=== PATIENT | male | born 1940 | race Caucasian/White ===

== ENCOUNTER → 2017-02-25 | Outpatient (CLI) | payer OTHER ==
[~2017-02-25] MED LIST: AMARYL2 MG PO; AMBIEN 10 MG TA10 MG PO; ANTIVERT25 MG PO; ASPIRIN EC81 M1 PO; CELEBREX 200 M200 MG PO; CLONAZEPAM0.25 MG PO; CYMBALTA60 MG PO; DILAUDID2 M1 PO; ETODOLAC 400 M400 MG PO; FLOMAX PO; GLUCOPHAGE500 MG PO; LEXAPRO20 MG PO; LIPITOR10 MG PO; LISINOPRIL10 MG PO; LYCOPENE10 MG PO; LYRICA 75 MG CA75 MG PO; MULTIVITAMINS PO; VITAMIN B-122000 MC1 PO; VITAMIN D1000 UNI1; XANAX 0.25 MG0.25 MG PO; ZOCOR 10 MG TAB10 MG PO
--- NOTE | ~2017-02-25 | HPC ---
[facility] [place] [address] PAIN MANAGEMENT CONSULTATION Name: SAVAGE,SHAYY CAGE Room #: REG [facility].#: [id number] Admission: 02/25/17 Attend Phys: Eddi Rob MD Discharge: Date of : 36 Report #: [id number] THIS REPORT FOR: //name// CC: Monty Mckenna MD Seen on 02/25/[address] Maxime Rob. PRIMARY CARE PHYSICIAN: Monty Carbajal M.D. FOLLOWUP COMPLAINT: The pain that is going down both legs. FOLLOWUP HISTORY: The patient is a 76-year-old gentleman who has been seen in the pain clinic because of lumbar radicular pain. He has undergone epidural steroid injections and gleaned benefits from these. He returns today indicating that his pain is a 6/10. He notes that the pain is still problematic. As you recall, he fell off a ladder in November of this year. He continues to have pain that is radiating down his back. It was radiating down the right leg only. Today is radiating down into both legs with numbness, tingling and weakness. He rates his pain as a 6/10. Pain increases with activities of daily living. He notes that the pain improves, "when he lies down." The pain continues to impact his ability to ambulate. He would like to proceed with another epidural steroid injection. MEDICATIONS: Cymbalta, multivitamins, aspirin, lisinopril, Lycopene, Dilaudid 2 mg q. 4-6 hours as needed, tamsulosin, Ambien, Celebrex, Glucophage. ALLERGIES: RADIOGRAPHIC DYE and OXYCODONE. PHYSICAL EXAMINATION: Blood pressure 136/88, pulse 91, respiratory rate 16, room air saturation is 97%. The patient has pain and discomfort in the low portion of his back with pain radiating down into both legs. He complains of sharp, shooting, aching and stabbing pain in the lower extremities. IMPRESSION: Low back pain with radiation into the right hand, left leg. RECOMMENDATIONS: We discussed the treatment options with the patient. 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 We will proceed with a midline epidural steroid injection given that he is having pain down in both legs today. Risks and benefits of the procedure were discussed with the patient. Possible complications, which are not limited to, but could include infection, increased muscle soreness, headache, nerve weakness, increased pain. The patient elects to proceed. PROCEDURE NOTE: The patient was placed in the prone position. Fluoroscopy was [address] [address] PAIN MANAGEMENT CONSULTATION Name: SHAYY SAVAGE [id number] Admission: 02/25/17 Attend Phys: Eddi Rob MD Discharge: Date of : 38 Report #: [id number] used to identify the L4/L5 distribution. A 17-gauge Tuohy with loss of resistance technique was used to gain access to the epidural space. There was no CSF, heme or paresthesia. Total of 80 mg Depo-Medrol, 40 mg triamcinolone and 2 mL of 0.25% bupivacaine was injected. The patient's pain decreased from 6-0 at the time of discharge. He will follow up in the future as needed. We would like to thank you for letting us participate in his care. We hope he continues to improve. By: [id number] Eddi Rob MD /nt
[2017-02-25 13:13] VITALS: BP 136/88
== END | disposition home or self-care (01) ==
LOC: PAIN 06:53
DX: M54.16 Radiculopathy, lumbar region (principal); M48.06 Spinal stenosis, lumbar region

== ENCOUNTER → 2017-03-27 | Outpatient (CLI) | payer OTHER ==
[~2017-03-27] VITALS: Ht 177.8 cm; Wt 107.1 kg
--- NOTE | ~2017-03-27 | HPC ---
[facility] [address] [address] PAIN MANAGEMENT CONSULTATION Name: HUSSEINSHAYY CAGE Room #: REG [facility].#: [id number] Admission: 03/27/17 Attend Phys: Eddi Rob MD Discharge: Date of : 38 Report #: [id number] THIS REPORT FOR: //name// CC: Monty Mckenna MD DATE OF SERVICE: 03/27/2017 FOLLOWUP COMPLAINT: Here for another injection. FOLLOWUP HISTORY: The patient is a 76-year-old gentleman who has been seen in the pain clinic because of lumbar radiculopathy. At the last visit, he underwent an epidural steroid injection. He notes that his pain improved. He does perceives some weakness in his lower extremities. As you may recall, he suffers from problems with his balance. He states that he has undergone therapy to help with his balance. He is still falls. He fell this morning and injured his elbow, back, shins and bumped the right side of his head. He rates his pain as a 10/10 today. He denies any change in his neurological function. PHYSICAL EXAMINATION: Blood pressure 116/76, pulse 85, respiratory rate 16, room air saturation 96%. Height 5 feet 10 inches, weight 236 pounds, BMI is 33.9. The patient has a Band-Aid on the right elbow. Has some redness on the left elbow, complains of some irritation and ____ on his knee, indicates that he had hit his right cheek area when he fell, there was no evidence of blood in this area or significant swelling. IMPRESSION: 1. Lumbar radicular pain, which has improved with an epidural steroid injection. 2. Balance instability with falling. The patient fell this morning and hit his head on the dresser. There was no loss of consciousness. Landed on his hands and knees. 3. MRI showing a central stenosis at L3-L4, which is high grade and status post midline epidural steroid injection at the last visit with improvement. RECOMMENDATIONS: We discussed treatment options with the patient. Again, the pain in his legs in the L4-L5 distribution appears to have improved after the last epidural steroid injection. He still feels weakness in his lower extremities. He still notes that if he lifts his head up skyward to quickly or rotates his head to quickly, he experiences some dizziness and tries to limit these activities. RECOMMENDATIONS: We will proceed with another epidural steroid injection. Risks and benefits of the procedure were again reviewed. Possible complications [address] [address] PAIN MANAGEMENT CONSULTATION Name: SHAYY SAVAGE Room #: REG [facility]#: [id number] Admission: 03/27/17 Attend Phys: Eddi Rob MD Discharge: Date of : 38 Report #: [id number] were explained. The patient elects to proceed. We also discussed the patient to buy any bicycle helmet. He states he has a bicycle. On those days when he feels somewhat unsteady, I think it would be beneficial if he wore the bicycle helmet. We told him this could be helpful when he is in the bathroom. He did state that he stood too quickly from the stool, felt dizzy and has fallen in the bathroom before. The patient states he would think about this. He agrees to perform another epidural steroid injection. Risks and benefits of the procedure were again reviewed. Possible complications which could include infection, increased muscle soreness, headaches, bleeding and muscle trauma were explained. PROCEDURE NOTE: The patient was placed in the prone position. Fluoroscopy was used to identify the L4-5 interspace. This area had been sterilely prepped with Betadine and infiltrated with 0.25% bupivacaine. Total of 80 mg Depo-Medrol, 40 mg triamcinolone and 2 mL of 0.25% bupivacaine was injected. The patient's pain decreased from 10-0 at the time of discharge. He will follow up in the future as needed. We would like to thank you for letting us participate in his care. We hope he continues to improve. By: [id number] Eddi Rob MD /domingo
[2017-03-27 10:46] VITALS: BP 116/73
== END | disposition home or self-care (01) ==
LOC: PAIN 07:43
DX: M54.16 Radiculopathy, lumbar region (principal); Z87.891 Personal history of nicotine dependence

== ENCOUNTER 2018-05-27 05:36 | Day surgery (SDC) | payer OTHER ==
[~2018-05-27] VITALS: Ht 177.8 cm; Wt 104.3 kg
--- NOTE | ~2018-05-27 | O ---
[facility] [place] [address] OPERATIVE REPORT Name: HUSSEINSHAYY CAGE Room #: DEP [facility]..#: [id number] Admission: 05/27/18 Attend Phys: Blue Santana MD Discharge: 05/27/18 Date of : 38 Report #: [id number] THIS REPORT FOR: //name// CC: Bonifacio Santana DATE OF SERVICE: 05/27/2018 SURGEON: Blue Santana M.D. MAIL RIDER: None. PREOPERATIVE DIAGNOSIS: Bilateral lower lid ectropion. POSTOPERATIVE DIAGNOSIS: Bilateral lower lid ectropion. OPERATION PERFORMED: Bilateral lower lid ectropion repair. ANESTHESIA: Local with IV sedation. COMPLICATIONS: None. INDICATIONS FOR PROCEDURE: This patient has bilateral acquired lower lid ectropion with chronic tearing and discharge. The current procedures are undertaken in order to improve the patient's visual function, lacrimal outflow, and level of comfort. Informed consent was obtained to include but not limit to the risk of loss of vision, bleeding, infection, scarring, failure to improve the problem and need for further surgery. DESCRIPTION OF OPERATION: The patient was taken to the operating room where 2% Xylocaine with epinephrine mixed with equal parts of 0.75% Marcaine with Wydase was administered transcutaneously and transconjunctivally to each lower lid and lateral canthal area. The patient was then prepped and draped in the usual sterile fashion. A Partha clamp was then used to clamp the left lateral canthus following which a sharp canthotomy and cantholysis were performed. The tarsal strip was prepared laterally, removing the lash bearing portion of the redundant lid margin and the redundant tarsal plate. Hemostasis was achieved with a monopolar cautery, as it was throughout the case. The tarsal strip was then secured to the internal portion of the lateral orbital tubercle with two interrupted 5-0 Prolene sutures. The lateral canthal angle was sharply reformed as the subcutaneous structures and the skin were closed with multiple interrupted 6-0 plain gut sutures. Attention was then turned to the right side where the same procedure was [facility] [address] [place] [address] OPERATIVE REPORT Name: SHAYY SAVAGE Room #: DEP [facility]..#: [id number] Admission: 05/27/18 Attend Phys: Blue Santana MD Discharge: 05/27/18 Date of : 38 Report #: [id number] performed. The wounds were cleaned and dressed with ophthalmic antibiotic ointment. The patient was then transported to the recovery area, having tolerated the procedure well with no anesthetic or operative complications being noted. <ELECTRONICALLY SIGNED> By: Blue Santana MD 05/31/18 0624 [id number] Blue Santana MD /nt
[~2018-05-27 05:36] MED LIST changes: +ALEVE220 MG PO; +CLONAZEPAM 0.50.5 M1 PO; +LIPITOR 20 MG T20 M1 PO; +OMEPRAZOLE40 MG PO; +PROBIOTIC1 EAC1 PO; +VITAMIN D32000 UNIT PO; +VOLTAREN GEL 1100 G2
[2018-05-27 09:15] VITALS: BP 119/93
== END 2018-05-27 10:25 | disposition home or self-care (01) ==
LOC: TBA 05:36 → OR 05:36
DX: H02.105 Unspecified ectropion of left lower eyelid (principal); H02.102 Unspecified ectropion of right lower eyelid; I10 Essential (primary) hypertension; E11.9 Type 2 diabetes mellitus without complications; E78.5 Hyperlipidemia, unspecified; G47.33 Obstructive sleep apnea (adult) (pediatric); F32.9 Major depressive disorder, single episode, unspecified; F41.9 Anxiety disorder, unspecified; K21.9 Gastro-esophageal reflux disease without esophagitis; Z87.19 Personal history of other diseases of the digestive system; Z98.890 Other specified postprocedural states; Z86.73 Personal history of transient ischemic attack (TIA), and cerebral infarction without residual deficits; Z87.891 Personal history of nicotine dependence; Z79.899 Other long term (current) drug therapy; Z96.653 Presence of artificial knee joint, bilateral; Z98.41 Cataract extraction status, right eye; Z98.42 Cataract extraction status, left eye; Z91.041 Radiographic dye allergy status; Z79.82 Long term (current) use of aspirin
CPT/HCPCS: 50010; 50101; 50386; 50398; 51636; 56527; 56531; 62110; 62850; 70005

== ENCOUNTER 2018-06-24 05:28 | Day surgery (SDC) | payer OTHER ==
[~2018-06-24] VITALS: Ht 177.8 cm; Wt 104.3 kg
--- NOTE | ~2018-06-24 | O ---
[facility] [place] [address] OPERATIVE REPORT Name: SHAYY SAVAGE Room #: DEP [facility].#: [id number] Admission: 06/24/18 Attend Phys: Blue Santana MD Discharge: 06/24/18 Date of : 38 Report #: [id number] THIS REPORT FOR: //name// CC: Kb Santana DATE OF SERVICE: 06/24/2018 SURGEON: Blue Santana MD SOLAR TECH: None. PREOPERATIVE DIAGNOSIS: Bilateral upper lid dermatochalasia with superior visual field defect. POSTOPERATIVE DIAGNOSIS: Bilateral upper lid dermatochalasia with superior visual field defect. OPERATION PERFORMED: Bilateral upper lid functional blepharoplasty. ANESTHESIA: Local with IV sedation. COMPLICATIONS: None. 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 Visual field testing demonstrates dense superior visual defects. Retesting with the upper lid elevated shows an improvement in visual field loss of over 30% and in excess of 12 degrees. The current procedures are undertaken in order to improve the patient's visual function. Informed consent was obtained to include but not limited to the loss of vision, bleeding, infection, scarring, failure to improve the problem and need for further surgery. DESCRIPTION OF OPERATION: The patient was taken to the operating room, where 2% Xylocaine with epinephrine mixed with equal parts of 0.75% Marcaine with Wydase was administered transcutaneously to each upper lid. The patient was then prepped and draped in the usual sterile fashion and a skin-marking pen was then utilized to outline an upper lid crease that was symmetrical on each side. Graefe forceps were then used to quantitate the redundant upper lid skin and it was similarly outlined. The incisions were then made with Paul scissors and a skin-muscle flap removed from each side with high-temp cautery. Hemostasis was achieved with the monopolar cautery as it was throughout the case. The [address] [address] OPERATIVE REPORT Name: SHAYY SAVAGE Room #: DEP [facility] M.R.#: [id number] Admission: 06/24/18 Attend Phys: Blue Santana MD Discharge: 06/24/18 Date of : 38 Report #: [id number] orbital septum was then identified and the central and medial fat pads were inspected. The redundant soft tissue was then sculpted with the monopolar cautery. The upper lid crease was then reformed with tightening of the pretarsal orbicularis muscle. The upper lid crease was then further reformed with multiple interrupted 6-0 chromic sutures. The skin was then closed with a running 6-0 plain gut suture. The wound was then cleaned and dressed with ophthalmic antibiotic ointment and a nonstick dressing. The patient was transported to the recovery area, where cold compresses were applied, having tolerated the procedure well with no anesthetic or operative complications being noted. <ELECTRONICALLY SIGNED> By: Blue Santana MD 06/28/18 0621 [id number] Blue Santana MD /nt
[2018-06-24 10:12] VITALS: BP 130/70
== END 2018-06-24 11:36 | disposition home or self-care (01) ==
LOC: TBA 05:28 → OR 05:28
DX: H02.834 Dermatochalasis of left upper eyelid (principal); H02.831 Dermatochalasis of right upper eyelid; H53.462 Homonymous bilateral field defects, left side; H53.461 Homonymous bilateral field defects, right side; I10 Essential (primary) hypertension; E11.9 Type 2 diabetes mellitus without complications; K21.9 Gastro-esophageal reflux disease without esophagitis; E78.5 Hyperlipidemia, unspecified; F32.9 Major depressive disorder, single episode, unspecified; F41.9 Anxiety disorder, unspecified; G47.33 Obstructive sleep apnea (adult) (pediatric); Z86.73 Personal history of transient ischemic attack (TIA), and cerebral infarction without residual deficits; Z98.890 Other specified postprocedural states; Z96.653 Presence of artificial knee joint, bilateral; Z98.41 Cataract extraction status, right eye; Z98.42 Cataract extraction status, left eye; Z87.891 Personal history of nicotine dependence
CPT/HCPCS: 50010; 50101; 50386; 50398; 51636; 56531; 62110; 62850; 70005

== ENCOUNTER → 2018-11-04 | Outpatient (CLI) | payer OTHER ==
[~2018-11-04] VITALS: Ht 177.8 cm; Wt 103.8 kg
[~2018-11-04] MED LIST changes: +AMOXICILLIN 50500 MG PO; +ASPIR 8181 MG PO; +ETODOLAC 400 M400 M1 PO; +FINASTERIDE5 MG PO; +FLOMAX0.4 MG PO; +METFORMIN HCL500 MG PO
--- NOTE | ~2018-11-04 | HPC ---
[facility] [address] [place] [address] PAIN MANAGEMENT CONSULTATION Name: HUSSEINSHAYY NILES [id number] Admission: 11/04/18 ������������������ Attend Phys: Chuck Ryan MD Discharge: ������������������ Date of : 38 Report #: [id number] THIS REPORT FOR: //name// CC: ROXANN Mckenna DATE OF SERVICE: 11/04/2018 CHIEF COMPLAINT: Low back pain with severe spinal stenosis, L3-L4. It has been over 2 years since we last saw the patient. At that time, he saw my partner, Dr. Maxime Rob. He is here today complaining of severe low back pain. He has a little radiation with it, but his pain is not classic for spondylitic pain. He has no pain with back extension and his pain comes primarily with forward flexion across the lumbar region. This is more consistent with spinal stenosis and discogenic pain. He has a new MRI scan, which we are unable to obtain, but I did review his old MRI, which shows that he has severe spinal stenosis narrowing the thecal sac to 0.7 cm AP. This has been felt to be progressive over the course of the last several years and his more recent MRI is expected to show more of the same. He has tried managing with physical therapy and medication. He is here today hoping for an epidural steroid injection. PQRS REVIEW: 1. He has a history of osteoarthritis and has had complaints of pain in his hips and lower extremities. 2. He denies use of tobacco or alcohol. 3. He is on no opioid medication at this time. 4. He is not a fall risk and has not fallen recently. 5. He is under treatment for hypertension and is not on a blood thinner. 6. Pain score is 6/10. 7. All medications were reviewed and reconciled from the electronic medical record. He is on no blood thinners. He does remain on etodolac, the nonsteroidal anti-inflammatory drug, and the risks of the end-stage were discussed. PHYSICAL EXAMINATION: HEENT: Normal. CHEST: Clear. CARDIAC: Rhythm is regular. ABDOMEN: Soft. MUSCULOSKELETAL: Spine reveals tenderness across the lumbosacral segment above the level of his scar from previous surgery. There is localized tenderness [address] [address] PAIN MANAGEMENT CONSULTATION Name: SHAYY SAVAGE [id number] Admission: 11/04/18 ������������������ Attend Phys: Chuck Ryan MD Discharge: ������������������ Date of : 38 Report #: [id number] there. He has pain with forward flexion of the lumbar spine and improvement with extension. Rotational movement and tbgd-bo-hvlo tilt also aggravate his pain. Straight leg raising is negative. Strength is normal in lower extremities. Deep tendon reflexes are 2+ in knees and trace at the ankles. IMPRESSION: Low back pain with spondylosis and severe spinal stenosis, L3-L4. RECOMMENDATION: Epidural steroid injection, L3-L4, under fluoroscopic guidance. We discussed his IODINE ALLERGY and I have decided that in order to be accurate, I must put a small amount of radiographic dye and will use less than 0.5 mL diluted for this purpose. He was taken to fluoroscopic suite, placed prone, skin prepped with ChloraPrep. Skin anesthetized over the L3-L4 interspace. He took 2 different entry points before I was able to identify the ligamentum flavum and advanced into the epidural space with a good loss of resistance technique. There was no discomfort. I injected 0.25 mL of Omnipaque diluted with 1 mL of normal saline. A good epidurogram was achieved. It was then followed by 3 mL of 0.5% lidocaine mixed with 80 mg triamcinolone. He tolerated the procedure well. Pain score was reduced to a 3 at discharge and we hope for longer benefit. He will follow up in 1 month. No medications were ordered. ��������������������������������������������� ���������������������������������������� By: ��������������������������������������������� [id number] Chuck Ryan MD /nt
[2018-11-04 14:48] VITALS: BP 125/77
--- NOTE | 2018-11-04 15:26 | NUR ---
Pain Clinic Assessment: 1. History of Osteoarthritis: EVERYWHERE History of Rheumatoid Arthritis: Not Applicable 2. Height: 5 ft. 10 in. 177.8 cm. Weight: 228.8 lb. oz. 103.783 kg. Patient's BMI: 32.8 3. Vital Signs: BP: 125/77 Pulse: 80 Resp: 14 Temp: 02 Sat: 96 ECG Mon: 4. Pain Intensity: 6 5. Fall Risk: Dizziness: Y Needs help standing or walking: N Fallen in the last 3 months: Y Fall risk comments: 6. Patient on Blood Thinner: None 7. History of Hypertension: Y 8. Opioid Therapy greater than 6 weeks: Y Opiate Contract Signed: 9. Risk Assessment Tool Provided: 10. Functional Assessment Tool: 11. Recreational Drug Use: Never Drug Type: Tobacco Use: Former Smoker Tobacco Type: Amount or Packs/day: How Many Years: Alcohol Use: Yes Frequency: Quant:
== END | disposition home or self-care (01) ==
LOC: PAIN 07:08
DX: M48.061 Spinal stenosis, lumbar region without neurogenic claudication (principal); M54.5 Low back pain; M47.816 Spondylosis without myelopathy or radiculopathy, lumbar region; M19.90 Unspecified osteoarthritis, unspecified site; I10 Essential (primary) hypertension; Z87.891 Personal history of nicotine dependence; Z88.8 Allergy status to other drugs, medicaments and biological substances; Z79.899 Other long term (current) drug therapy; Z79.82 Long term (current) use of aspirin